=== PATIENT | female | born 1985 | race Asian ===

== ENCOUNTER → 2023-03-13 | Day surgery (SDC) | payer OTHER ==
[~2023-03-13] MED LIST: Acetaminophen 500 MG TAB ONE; Acetaminophen 500 MG TAB PO SCH; Iron Sucrose Complex 500 MG in Sodium Chloride 0.9% 250 ML 250 ML IVPB SCH
== END ==
LOC: CSHSDC 11:25
PROVIDERS: ATTEND Advanced Practice Midwife
DX: K90.89 Other intestinal malabsorption (principal)
CPT/HCPCS: 96365; 96366; J1756; J7050

== ENCOUNTER 2023-04-10 11:12 | Day surgery (SDC) | payer OTHER ==
[2023-04-10] MEDS ORDERED: diphenhydrAMINE 25 MG CAP ONE (12:41)
[2023-04-10] MEDS ORDERED: Acetaminophen 500 MG TAB ONE (12:41)
== END 2023-04-10 17:00 | disposition home or self-care (01) ==
LOC: CSHSDC 11:12
PROVIDERS: ATTEND Advanced Practice Midwife
DX: O99.019 Anemia complicating pregnancy, unspecified trimester (principal); D64.9 Anemia, unspecified; Z3A.00 Weeks of gestation of pregnancy not specified
CPT/HCPCS: 36415; 36430; 86850; 86900; 86901; 96365; 96366; P9016

== ENCOUNTER 2023-05-04 05:00 | Inpatient (IN) | payer OTHER ==
[2023-05-04] MEDS ORDERED: Ondansetron PF 4 MG/2 ML Vial IVP PRN (08:49)
[2023-05-04] MEDS ORDERED: Misoprostol 200 MCG TAB PR PRN (08:49)
[2023-05-04] MEDS ORDERED: Lidocaine 1% (PF) 30 ML VIAL SC PRN (08:49)
[2023-05-04] MEDS ORDERED: fentaNYL 50 mcg/mL 1 mL Vial SLOW IVP PRN (08:49)
[2023-05-04] MEDS ORDERED: Promethazine HCl 25 MG/ML VIAL IM PRN (08:49)
[2023-05-04] MEDS ORDERED: hydrALAZINE 20 MG/ML VIAL SLOW IVP PRN (08:49)
[2023-05-04] MEDS ORDERED: HYDROcodone/Acetaminophen 5/325 mg Tablet PO PRN ×2 (08:49)
[2023-05-04] MEDS ORDERED: Methylergonovine 0.2 MG/ML VIAL IM PRN (08:49)
[2023-05-04] MEDS ORDERED: Ibuprofen 800 MG TAB PO PRN (08:49)
[2023-05-04] MEDS ORDERED: Oxytocin 30 units/NS 500 ML 500 ML IV SCH ×2 (09:00)
[2023-05-04 20:26] LABS: Hematocrit 34.9 % (34.9-44.5); Mean Corpuscular HGB CONC 31.5 g/dL (32.0-36.0); Mean Corpuscular Hemoglobin 21.3 pg (27.0-33.0); Mean Corpuscular Volume 67.6 fl (81.6-98.3); Platelet Count 152 10x3/uL (150-450); RBC Distribution Width 17.9 % (11.5-14.5); Red Blood Cell (RBC) Count 5.16 10x6/uL (3.90-5.03); White Blood Cell (WBC) Count 6.8 10x3/uL (3.5-10.5)
[2023-05-04 20:56] LABS: Syphilis Antibody Nonreactive (Nonreactive); Syphilis Antibody Index 0.05 S/CO (<1.00 Non-Reactive)
[2023-05-04 20:58] LABS: HBSAg Index 0.15 S/CO (0-0.99); Hep B Surf Ag - L&D Non-Reactive S/CO (NonReactive)
[2023-05-04] MEDS: Misoprostol 100 MCG TAB PO SCH (21:35)
[2023-05-04 21:47] VITALS: BMI 26.2
[2023-05-05] MEDS: Lactated Ringer's 1,000 ML IV SCH ×5 (00:19→06:42)
[2023-05-05] MEDS: Misoprostol 100 MCG TAB PO SCH ×5 (00:20→19:26)
[2023-05-05] MEDS ORDERED: fentaNYL/Ropivacaine Epidural 100 ML ONE (05:47)
[2023-05-05] MEDS ORDERED: diphenhydrAMINE 50 MG/ML VIAL IVP PRN (06:46)
[2023-05-05] MEDS ORDERED: Moisturizing Cream (Eucerin) 113 GM JAR TOP PRN (06:46)
[2023-05-05] MEDS ORDERED: Lactated Ringer's 500 ML IV PRN (06:46)
[2023-05-05] MEDS ORDERED: ePHEDrine Sulfate 50 MG/10 ML VIAL SLOW IVP PRN (06:46)
[2023-05-05] MEDS ORDERED: Promethazine HCl 25 MG/ML VIAL IM PRN (06:46)
[2023-05-05] MEDS ORDERED: Ondansetron PF 4 MG/2 ML Vial IVP PRN (06:46)
[2023-05-05] MEDS ORDERED: Naloxone HCl 0.4 mg/ml Vial IVP PRN ×2 (06:46)
[2023-05-05] MEDS ORDERED: Acetaminophen 325 MG TAB PO PRN (06:46)
[2023-05-05] MEDS ORDERED: fentaNYL 2 mcg/Ropivacaine 0.2% Epidural 100 ML CADD EPIDURAL SCH (07:00)
[2023-05-05] MEDS ORDERED: Communication Order-Pharmacy FS SCH (07:00)
[2023-05-05] MEDS ORDERED: Benzocaine-Menthol 82.5 ML CAN TOP PRN (13:14)
[2023-05-05] MEDS ORDERED: Lanolin Ointment 7 GM TUBE TOP PRN (13:14)
[2023-05-05] MEDS ORDERED: Boostrix 0.5 ML (Tdap) VIAL (>/=7 yrs of age) IM ONE (13:14)
[2023-05-05] MEDS ORDERED: Methylergonovine 0.2 MG/ML VIAL IM PRN (13:14)
[2023-05-05] MEDS ORDERED: Misoprostol 200 MCG TAB VAG PRN (13:14)
[2023-05-05] MEDS ORDERED: hydrALAZINE 20 MG/ML VIAL SLOW IVP PRN (13:14)
[2023-05-05] MEDS ORDERED: Oxytocin 30 units/NS 500 ML 500 ML IV SCH (13:14)
[2023-05-05] MEDS ORDERED: Bisacodyl 10 MG SUPP PR PRN (13:14)
[2023-05-05] MEDS ORDERED: Milk Of Magnesia 30 ML UDCUP PO PRN (13:14)
[2023-05-05] MEDS ORDERED: HYDROcodone/Acetaminophen 5/325 mg Tablet PO PRN ×2 (13:14)
[2023-05-05] MEDS: Ibuprofen 800 MG TAB PO SCH ×2 (13:36→21:14)
[2023-05-05] MEDS: Ferrous Sulfate 325 MG TAB PO SCH (13:38)
[2023-05-05] MEDS: Docusate 100 MG CAP PO SCH (21:14)
[2023-05-06] MEDS: Ibuprofen 800 MG TAB PO SCH ×3 (05:46→17:56)
[2023-05-06] MEDS: Ferrous Sulfate 325 MG TAB PO SCH ×2 (07:41→07:42)
[2023-05-06] MEDS: Docusate 100 MG CAP PO SCH (09:34)
[2023-05-06] MEDS: Prenatal Vitamin 1 TAB PO SCH (09:34)
[2023-05-06 22:31] VITALS: TEMP 98.2
[2023-05-07] MEDS: Ibuprofen 800 MG TAB PO SCH ×2 (01:27→09:28)
[2023-05-07] MEDS: Docusate 100 MG CAP PO SCH ×2 (01:27→09:28)
[2023-05-07 07:59] VITALS: BP 129/59
[2023-05-07] MEDS: Ferrous Sulfate 325 MG TAB PO SCH (08:37)
[2023-05-07] MEDS: Prenatal Vitamin 1 TAB PO SCH (09:28)
== END 2023-05-07 12:25 | disposition home or self-care (01) | DRG 806 ==
LOC: CSHLD 19:10 → CSHPP 05-05 14:17
PROVIDERS: ADMIT Obstetrics & Gynecology; ATTEND Obstetrics & Gynecology
PROC: 10E0XZZ Delivery of Products of Conception, External Approach (ICD-10-PCS; principal; 2023-05-05)
PROC: 0KQM0ZZ Repair Perineum Muscle, Open Approach (ICD-10-PCS; 2023-05-05)
DX: O24.424 Gestational diabetes mellitus in childbirth, insulin controlled (principal); O26.643 Intrahepatic cholestasis of pregnancy, third trimester; Z37.0 Single live birth; Z3A.37 37 weeks gestation of pregnancy; D56.3 Thalassemia minor; D64.9 Anemia, unspecified; O70.1 Second degree perineal laceration during delivery; E78.79 Other disorders of bile acid and cholesterol metabolism; K76.89 Other specified diseases of liver; Z79.4 Long term (current) use of insulin; O99.02 Anemia complicating childbirth
CPT/HCPCS: 36415; 36416; 85027; 86780; 86850; 86900; 86901; 87340; J2590; J3010; J7120